=== PATIENT | female | born 1995 | race Caucasian/White ===

== ENCOUNTER 2023-07-04 09:21 | Day surgery (SDC) | payer BC ==
[~2023-07-04 09:21] MED LIST: Albuterol 0.083% 2.5 MG/3 ML Neb Soln NEB PRN; HYDROmorphone 1 MG/ML Syringe IVPUSH PRN; Lactated Ringers 1,000 ML IV SCH; Metoclopramide 10 MG/2 ML SDV IVPUSH PRN; Morphine 2 MG/ML SYRINGE IVPUSH PRN; Naloxone 0.4 MG/ML SDV IVPUSH PRN; Ondansetron 4 MG/2 ML SDV IVPUSH PRN; Scopolamine 1.5 MG Transdermal Patch TOP ONE; Sodium Chloride 0.9% 10 ML Syringe FLUSH PRN; Sodium Chloride 0.9% 2.5 ML Syringe FLUSH PRN; Sodium Chloride 0.9% 20 ML SDV IV PRN; droPERidol 5 MG/2 ML SDV IVPUSH PRN; fentaNYL 50 MCG/ML SDV IVPUSH PRN
[2023-07-04] MEDS ORDERED: Scopolamine 1.5 MG Transdermal Patch ONE (09:33)
[2023-07-04] MEDS ORDERED: fentaNYL 250 MCG/5 ML SDV ONE (09:45)
[2023-07-04] MEDS ORDERED: Propofol 200 MG/20 ML SDV ONE (09:45)
[2023-07-04] MEDS ORDERED: propofoL 50 ML ONE (09:45)
[2023-07-04 09:51] LABS: HEMATOCRIT 41.8 % (37.0-47.0); HEMOGLOBIN 14.6 g/dL (12.0-16.0); MEAN CORPUSCULAR HEMOGLOBIN 30.2 pg (28.0-32.0); MEAN CORPUSCULAR HGB CONC 34.9 g/dL (32.0-36.0); MEAN CORPUSCULAR VOLUME 86.4 fL (83.0-99.0); MEAN PLATELET VOLUME 9.2 fL (9.4-12.3); PLATELET COUNT,PLT 267 K/uL (150-400); RED BLOOD CELL COUNT 4.84 M/uL (4.10-5.30)
[2023-07-04] MEDS ORDERED: Ondansetron 4 MG/2 ML SDV ONE (10:44)
[2023-07-04] MEDS ORDERED: Ketorolac 30 MG/ML SDV ONE (10:44)
== END 2023-07-04 12:00 | disposition home or self-care (01) ==
LOC: MW.SDS 09:21
PROVIDERS: ATTEND Obstetrics & Gynecology
DX: N84.0 Polyp of corpus uteri (principal); I10 Essential (primary) hypertension; J45.909 Unspecified asthma, uncomplicated; F41.9 Anxiety disorder, unspecified; E66.9 Obesity, unspecified; Z68.39 Body mass index [BMI] 39.0-39.9, adult; Z79.899 Other long term (current) drug therapy
CPT/HCPCS: 36415; 58558; 84703; 85027; A9270; C1729; J0131; J1885; J2405; J2704; J3010; J7120